=== PATIENT | male | born 1975 | race American Indian/Alaskan Native ===

== ENCOUNTER 2020-03-11 04:33 | Outpatient (CLI) | payer BC, SELFPAY ==
[2020-03-14 10:28] LABS: HIV-1/2 Ag & Ab Screen Negative (Negative)
[2020-03-14 10:51] LABS: Syphilis Serology (RPR) Negative (Negative)
== END 2020-03-11 04:53 ==
PROVIDERS: PCP Family Medicine
DX: Z11.3 Encounter for screening for infections with a predominantly sexual mode of transmission (principal); Z11.4 Encounter for screening for human immunodeficiency virus [HIV]
CPT/HCPCS: 36415; 87389; 86592

== ENCOUNTER 2021-05-15 18:59 | Emergency (ER) | payer BC, SELFPAY ==
[2021-05-15 19:43] VITALS: BP 128/74; PULSE 76; RESP 16; TEMP 36.8; O2SAT 94
[2021-05-15 19:44] LABS: Bilirubin Negative (Negative); Blood Trace-intact (Negative); Clarity Clear (Clear); Glucose Negative (Negative); Ketones Negative (Negative); Leukocyte Esterase Negative (Negative); Nitrite Negative (Negative); Urobilinogen 0.2 EU/dL (Up TO 0.2)
--- NOTE | 2021-05-15 19:45 | DI.CT_ITS ---
Exam(s) CT ABDOMEN PELVIS W EXAM: CT ABDOMEN PELVIS W CLINICAL HISTORY: mid and right lower abdominal pain TECHNIQUE: Imaging Protocol: Axial computed tomography images with coronal and sagittal reformatted images were created and reviewed CONTRAST MATERIAL: Intravenous: Omnipaque 350 Contrast volume:100 mL Oral: No COMPARISON: No exams were available for comparison FINDINGS: ABDOMEN: Lung Bases: Normal where visualized. Liver: Fatty infiltration of the liver. No measurable mass. The liver measures 22 cm in length. Portal, Superior Mesenteric, and Splenic Veins: Unremarkable. Gallbladder and Biliary Tract: No radiodense calculus or dilation. Pancreas: Normal density, no abnormal calcifications or inflammatory process. Spleen: Normal. Adrenals: No masses seen. Kidneys: Normal size, contour and axis. No radiodense stones or obstructive uropathy. No masses seen. Abdominal Aorta: Abdominal portion non-dilated. Bowel: No obstruction or bowel wall thickening. Appendix is unremarkable. Peritoneal Cavity: No ascites, collection or mesenteric inflammatory response. No free air. Lymph Nodes: Within normal limits. Bones: Within normal limits for the patient's age. Soft Tissues: There is a small fat containing umbilical hernia. PELVIS: Bladder: Symmetric distention, no gross wall thickening. Reproductive Organs: Unremarkable as visualized. Lymph Nodes: Within normal limits. Bones: Within normal limits for the patient's age. IMPRESSION: 1. No definite acute abdominal pelvic process. Please correlate clinically. 2. Hepatic steatosis and hepatomegaly. RADIATION DOSE DELIVERED: 1,534.32mGy.cm Total DLP DATA REPOSITORY: All CT scans at this facility are submitted to the National Radiology Data Registry (NRDR) Dose Index Registry (DIR) with the [employer] ([employer]). RADIATION OPTIMIZATION: All CT scans at this facility use at least one of these dose optimization te chniques: automated exposure control; mA and/or kV adjustment per patient size (includes targeted exa ms where dose is matched to clinical indication); or iterative reconstruction.
[2021-05-15 19:52] LABS: Bacteria Negative HPF (Negative); C & S Indicated? No; Casts Negative LPF (Negative); Crystals Negative HPF (Negative); Epithelial Cells Rare HPF (Negative); Mucus Negative (Negative); RBC 0-2 HPF (0-2); WBC 0-2 HPF (0-5)
--- NOTE | 2021-05-15 19:58 | ED.GENADUL_ITS ---
Discharge Plan Disposition Patient Disposition: HOME Condition: Stable Discharge Details Clinical Impression: Abdominal pain, Enteritis Primary Care Provider: Mike Marrero ED Provider: Abundio Spann Home Meds and New Rx's Prescriptions: New amoxicillin-pot clavulanate [Augmentin] 875-125 mg tablet 1 tab PO BID Qty: 14 RF: 0 Continued lisinopril 10 mg tablet 10 mg PO DAILY RF: 0 glycopyrrolate 1 mg tablet 1 mg PO BID-TID PRNRF: 0 valacyclovir [Valtrex] 1 gram tablet 1,000 mg PO BID PRNRF: 0 famotidine 20 mg tablet 20 mg PO DAILY RF: 0 Discharge Instructions Instructions: Abdominal Pain (ED) Additional Instructions: your cat scan showed a normal appendix, you do have some mild inflammation of the small bowel you can try taking prilosec daily to help your symptoms follow up with your primary care provider within 1 week if you feel more ill, have severe worsening pain or persistent vomit return to the emergency department Medical Decision Making 45 yo male with hx of htn no prior surgeries per patient comes in with chief complaint of abodminal pain. He states he has had periumbilical pain since Saturday. He went to urgent care today and refferred him here. He denies any diarhea, no fevers or vomit. He is tender in the right lower abdomin miranda daround the umiblicus, has very mild erythema around the umbilicus that is about 3cm in diameter, could be abdominal wall cellulitis but given his pain and tenderness will image to evaluate for possible abscess vs appendicitis ct shows no appendicitis, does have enteritis with reactive mesenteric inflammation, no other acute findings. He remains stable with minimal pain around umbilicus. I am going to treat the erythema as possible cellulitis with augmentin. He is stable for d/c, and will follow up with pcp and return precautions given Differential Diagnosis Differential Diagnosis: appendicitis, mesenteric adenitis, abdominal wall cellulitis Imaging Data Radiologic Study: Attestation: I personally reviewed and interpreted this imaging study as follows: Imaging: CT Scan Radiologist's impression: IMPRESSION: 1. Findings of enteritis with reactive mesenteric inflammation. 2. Hepatic steatosis. Lab Data Lab results reviewed: Yes I reviewed the patient's lab results. HPI General Mode of arrival: ambulatory . Date/Time Provider Initiated Documentation: 05/15/21 19:01 . Limitations to Documentation: no limitations . Information obtained by: patient . History of Present Illness 45 year old M presents to the emergency department with the chief complaint of abdominal pain, described as moderate, Patient started experiencing this day(s) (5) and it has been constant. No relieving factors improve symptom(s), No exacerbating factors reported . Patient notes no other symptoms.. Patient did receive the following treatments prior to arrival, none Related Data Home Medications Medication Instructions Recorded Confirmed amoxicillin-pot clavulanate 1 tab PO BID #14 tab 05/15/21 [Augmentin] famotidine 20 mg tablet 20 mg PO DAILY 05/15/21 05/15/21 glycopyrrolate 1 mg tablet 1 mg PO BID-TID PRN 05/15/21 05/15/21 lisinopril 10 mg tablet 10 mg PO DAILY 05/15/21 05/15/21 valacyclovir 1 gram tablet 1,000 mg PO BID PRN 05/15/21 05/15/21 Previous Rx's Medication Instructions Recorded amoxicillin-pot clavulanate 1 tab PO BID #14 tab 05/15/21 [Augmentin] Allergies Allergy/AdvReac Type Severity Reaction Status Date / Time sulfamethoxazole Allergy Mild Hives Verified 05/15/21 19:47 [From Bactrim] trimethoprim [From Bactrim] Allergy Mild Hives Verified 05/15/21 19:47 General Stated Complaint: Abd Prob CLYDE: 3 Review of Systems All systems reviewed & are unremarkable except as noted in HPI and below Constitutional Constitutional: Denies chills, Denies fever(s) and Denies weakness Cardiovascular Cardiovascular: Denies chest pain and Denies dyspnea Respiratory Respiratory: Denies cough and Denies dyspnea Gastrointestinal Gastrointestinal: Denies nausea and Denies vomiting Musculoskeletal Musculoskeletal: Denies joint swelling Neurologic Neurologic: Denies weakness [facility] Active Problem List (Updated 05/15/21 @ 21:01 by Abundio Spann MD) Abdominal pain (Acute) Enteritis (Acute) Medical History (Updated 05/15/21 @ 21:01 by Abundio Spann MD) Chronic GERD Hypertension Social History Smoking/Tobacco Use Status: Current-Occasional Smoking risk assessment performed?: Yes Alcohol Intake: current Alcohol Intake frequency: 0-2 drinks per day Alcohol type: beer Drug use: Never Substance use type: does not use Do you feel safe at home: Yes Do you feel safe in your relationship?: Yes Exam Const General: no acute distress Orientation: alert HENMT Head: normal to inspection Ears: external ears normal General nose exam: external nose normal Mouth: moist mucous membranes Eyes General: appearance normal, both eyes and all related structures Neck Neck: normal visual inspection Resp Effort & Inspection: normal respiratory effort and able to speak in complete sentences Cardio Rate: regular rate GI Palpation: soft and tender Skin General skin exam: no rashes or lesions noted Neuro General: patient alert and patient oriented x3 Extrem General: normal to inspection Psych Mental Status: mental status grossly normal Course Vital Signs Vital signs: Vital Signs Temperature 36.8 C 05/15/21 19:43 Pulse 76 05/15/21 19:43 Respiratory Rate 16 05/15/21 19:43 Blood Pressure 128/74 05/15/21 19:43 Pulse Oximetry 94 05/15/21 19:43 Temperature 36.8 C 05/15/21 19:43 Temperature Source Skin 05/15/21 19:43 Pulse 76 05/15/21 19:43 Respiratory Rate 16 05/15/21 19:43 Respiratory Effort Non-Labored 05/15/21 19:45 Blood Pressure 128/74 05/15/21 19:43 Pulse Oximetry 94 05/15/21 19:43 Pain Level 5 05/15/21 19:43 Lab/Test Results Lab/Test Results: Laboratory Tests Range/Units 05/15/21 19:15 Urine Color (Yellow) Yellow Urine Clarity (Clear) Clear Urine pH (5-8) 6.0 Ur Specific [place] (1.005-1.025) 1.020 Urine Protein (Negative) mg/dL Negative Urine Ketones (Negative) mg/dL Negative Urine Blood (Negative) Trace-intact H Urine Nitrite (Negative) Negative Urine Bilirubin (Negative) Negative Urine Urobilinogen (Up TO 0.2) EU/dL 0.2 Ur Leukocyte Esterase (Negative) Negative Urine RBC (0-2) HPF 0-2 Urine WBC (0-5) HPF 0-2 Ur Epithelial Cells (Negative) HPF Rare Urine Crystals (Negative) HPF Negative Urine Bacteria (Negative) HPF Negative Urine Casts (Negative) LPF Negative Urine Mucus (Negative) Negative Ur Culture Indicated? No Urine Glucose (Negative) mg/dL Negative PAWSS Have you Been Recently Intoxicated or Drunk Within the Last 30 days?: No Have you Ever Experienced Previous Episodes of Alcohol Withdrawal?: No Have you ever Experienced Withdrawal Seizures?: No Have you ever Experienced Delirium Tremens(DT)s?: No Have you ever undergone Alcohol Rehabilitation Treatment (i.e, inpt ot outpatient treatment programs)?: No Have you ever Experienced Blackouts?: No Have you ever Combined Alcohol with other Downers within the last 90 days?: No Have you ever Combined Alcohol with any other Substance of Abuse during the last 90 days?: No Positive Blood Alcohol level on Presentation? [PCS.BAL]: No Result: 0
[2021-05-15] MEDS: Normal Saline 1,000 ML 1000 ML IV (19:59)
[2021-05-15 20:00] LABS: Abs Immature Grans 0.03 10^3/uL (0.0-0.06); Absolute Basophil Count 0.05 10^3/uL (0.0-0.2); Absolute Lymphocyte Count 3.13 10^3/uL (1.2-3.4); Absolute Monocyte Count 0.88 10^3/uL (0.1-0.8); Absolute Neutrophil Count 6.68 10^3/uL (1.2-6.7); Basophils % 0.5; Eosinophils % 1.8; HCT 44.9 % (40.0-50.0); HGB 14.8 g/dL (13.5-17.5); Immature Grans % 0.3; Lymphocytes % 28.5; MCH 29.8 pg (27.0-33.0); MCV 90.5 fL (80-95); Neutrophils % 60.9; Nucleated RBC 0 %; Platelet Count 290 10^3/uL (130-400); RBC 4.96 10^6/uL (4.36-5.78); RDW-SD 42.7 fL; WBC 10.97 10^3/uL (4.4-10.8)
[2021-05-15] MEDS: Omnipaque 350 MG/ML 100 ML BTL IJ (20:14)
[2021-05-15] MEDS: Normal Saline Flush 10 ML SYR IVP (20:15)
[2021-05-15 20:33] LABS: ALT 28 U/L (16-63); AST 19 U/L (15-37); Albumin 4.1 g/dL (3.4-5.0); Alkaline Phosphatase 68 U/L (46-116); Anion Gap 9.1 mmol/L (3-11); BUN 17 mg/dL (7-18); Bilirubin, Total 0.4 mg/dL (0.2-1.0); CO2 26.9 mmol/L (21.0-32.0); CREATININE 0.9 mg/dL (0.70-1.30); Calcium 8.7 mg/dL (8.5-10.1); Chloride 103 mmol/L (98-107); Glucose 94 mg/dL (74-106); Lipase 50 U/L (73-393); Magnesium 2.1 mg/dL (1.8-2.4); Sodium 139 mmol/L (136-145); Total Protein 7.7 g/dL (6.4-8.2)
--- NOTE | 2021-05-15 20:54 | DI.VRAD_ITS ---
PROCEDURE INFORMATION: Exam: CT Abdomen And Pelvis With Contrast Exam date and time: 05/15/2021 7:58 PM Age: 45 years old Clinical indication: Localized; Patient HX: Mid and right lower abdominal pain. Pain for a few days increasing today TECHNIQUE: Imaging protocol: Computed tomography of the abdomen and pelvis with contrast. Radiation optimization: All CT scans at this facility use at least one of these dose optimization techniques: automated exposure control; mA and/or kV adjustment per patient size (includes targeted exams where dose is matched to clinical indication); or iterative reconstruction. Contrast material: OMNIPAQUE 350; Contrast volume: 100 ml; Contrast route: INTRAVENOUS (IV); COMPARISON: No relevant prior studies available. FINDINGS: Lungs: Lung bases are clear. Liver: Liver attenuation is low. Negative for mass or abscess. The liver is large, 22 cm in length. Gallbladder and bile ducts: Normal. No calcified stones. No ductal dilation. Pancreas: Normal. No ductal dilation. Spleen: Normal. No splenomegaly. Adrenal glands: Normal. No mass. Kidneys and ureters: Normal. No hydronephrosis. Stomach and bowel: Unremarkable stomach. Nondilated small bowel. Fat planes around loops of small bowel are indistinct. There are no inflammatory changes observed around the colon. Appendix: Normal appendix. Intraperitoneal space: Mild mesenteric fat stranding. No significant free fluid. Negative for free air. Negative for abscess. Vasculature: Unremarkable. No abdominal aortic aneurysm. Lymph nodes: Mesenteric lymph nodes are mildly prominent. Negative for pathologic lymphadenopathy. Urinary bladder: Unremarkable as visualized. Reproductive: Unremarkable as visualized. Bones/joints: Negative for compression fracture. Multilevel degenerative disc disease and facet arthropathy noted, greatest at the lumbosacral junction. Transitional lumbosacral anatomy noted. Soft tissues: Unremarkable. IMPRESSION: 1. Findings of enteritis with reactive mesenteric inflammation. 2. Hepatic steatosis. Dictated and Authenticated by: Abundio Odom MD. Ordering:ANIKET Del Castillo MD
[2021-05-15] MEDS: Amoxicillin 875/Clav. 125 TAB PO (21:07)
[2021-05-15 21:10] VITALS: BP 136/83; PULSE 73; TEMP 36.5; O2SAT 99
== END 2021-05-15 21:18 | disposition home or self-care (01) ==
PROVIDERS: Emergency Provider Emergency Medicine; PCP Family Medicine
DX: R10.33 Periumbilical pain (principal); K52.9 Noninfective gastroenteritis and colitis, unspecified; R10.31 Right lower quadrant pain
CPT/HCPCS: 36415; 80053; 83690; 96360; 99285; 74177; 81003; 81015; 83735; 85025; 99284; J3490

== ENCOUNTER 2021-09-08 19:27 | Outpatient (REF) | payer BC, SELFPAY ==
[2021-09-08 21:24] LABS: Bilirubin Negative (Negative); Blood Negative (Negative); Clarity Sl Cloudy (Clear); Glucose Negative (Negative); Ketones Negative (Negative); Leukocyte Esterase Negative (Negative); Nitrite Negative (Negative); Specific Gravity >= 1.030 (1.005-1.025); Urobilinogen 0.2 EU/dL (Up TO 0.2)
== END 2021-09-08 19:28 | disposition home or self-care (01) ==
LOC: LBN 19:27
PROVIDERS: PCP Family Medicine; Visit Provider Nurse Practitioner Family
DX: R39.9 Unspecified symptoms and signs involving the genitourinary system (principal); N39.0 Urinary tract infection, site not specified
CPT/HCPCS: 81003

== ENCOUNTER 2022-01-22 20:01 | Emergency (ER) | payer BC, SELFPAY ==
[2022-01-22] VITALS (69 sets, daily range): BP systolic 108–146; BP diastolic 61–94; PULSE 68–126; RESP 13–36; TEMP 37; O2SAT 94–99
--- NOTE | 2022-01-22 20:00 | RT.EKG_ITS ---
APPROVED REPORT Exam: Resting ECG Reason for Exam: chest pain Patient Location: E HR:123 bpm ECG Measurements Heart Rate 123 AXIS NM [id number] P [id number] QRSd 91 QRS 11 QT 336 T 94 QTc 481 Conclusion Atrial fibrillation...V-rate 102-138, irreg A-activity
[2022-01-22] MEDS: Normal Saline 1,000 ML 1000 ML IV (20:44)
[2022-01-22 20:45] LABS: Abs Immature Grans 0.03 10^3/uL (0.0-0.06); Absolute Basophil Count 0.05 10^3/uL (0.0-0.2); Absolute Eosinophil Count 0.41 10^3/uL (0.0-0.7); Absolute Lymphocyte Count 3.42 10^3/uL (1.2-3.4); Absolute Monocyte Count 0.88 10^3/uL (0.1-0.8); Basophils % 0.5; Eosinophils % 3.8; HCT 47.9 % (40.0-50.0); HGB 15.8 g/dL (13.5-17.5); Immature Grans % 0.3; Lymphocytes % 31.5; MCH 26.6 pg (27.0-33.0); MCV 81 fL (80-95); MPV 9.5 fL (8.0-11.0); Monocytes % 8.1; Neutrophils % 55.8; Platelet Count 341 10^3/uL (130-400); RBC 5.94 10^6/uL (4.36-5.78); RDW 15.7 % (11.8-14.1); RDW-SD 45.3 fL; WBC 10.85 10^3/uL (4.4-10.8)
[2022-01-22] MEDS: Aspirin 325 MG TAB PO (20:45)
[2022-01-22 20:46] LABS: Absolute Neutrophil Count 6.05 10^3/uL (1.2-6.7)
[2022-01-22 21:10] LABS: ALT 42 U/L (16-63); AST 44 U/L (15-37); Alkaline Phosphatase 72 U/L (46-116); Anion Gap 9.1 mmol/L (3-11); BUN 18 mg/dL (7-18); Bilirubin, Total 0.4 mg/dL (0.2-1.0); CO2 28.9 mmol/L (21.0-32.0); CREATININE 1.1 mg/dL (0.70-1.30); Calcium 8.8 mg/dL (8.5-10.1); Chloride 101 mmol/L (98-107); Glucose 120 mg/dL (74-106); Magnesium 1.8 mg/dL (1.8-2.4); Potassium 3.7 mmol/L (3.5-5.1); Sodium 139 mmol/L (136-145); Total Protein 7.8 g/dL (6.4-8.2)
[2022-01-22 21:17] LABS: D-Dimer 237 ng/mlFEU (<500); NT-proBNP 37 pg/mL (<300); TSH (W/Ref FT4) 7.47 uIU/mL (0.36-3.74); Troponin I 906 ng/L (<or=60)
[2022-01-22 21:35] LABS: FREE T4 0.76 ng/dL (0.76-1.46)
[2022-01-22] MEDS: dilTIAZem 25 MG/5 ML VIAL 20 MG IVP (21:43)
--- NOTE | 2022-01-22 22:10 | ED.GENADUL_ITS ---
Discharge Plan Disposition Patient Disposition: HOME Condition: Improving Discharge Details Clinical Impression: Atrial fibrillation Primary Care Provider: Mike Marrero ED Provider: Prince Godinez Home Meds and New Rx's Prescriptions: New metoprolol tartrate 25 mg tablet 25 mg PO DAILY PRNQty: 30 0RF Rx Instructions: once daily prn palpitations/fast heart rate aspirin [Adult Aspirin Regimen] 81 mg tablet,delayed release (DR/EC) 81 mg PO DAILY Qty: 30 0RF No Action omeprazole 40 mg capsule,delayed release(DR/EC) 40 mg PO 2XD lisinopril 10 mg tablet 20 mg PO DAILY glycopyrrolate 1 mg tablet 1 mg PO BID-TID PRN valacyclovir [Valtrex] 1 gram tablet 1,000 mg PO PRN PRN testosterone cypionate 200 mg/mL Kit 100 mg IM Q2W L-Arginine(alpha-ketoglutarat) 350 mg Tablet Extended Release PO 2XD Discharge Instructions Instructions: A-fib (Atrial Fibrillation) (ED) Additional Instructions: Please follow-up with electrophysiology clinic at [facility] next week as scheduled. Please be seen by your primary care physician within the next 1 to 2 weeks. Continue with your CPAP machine at home. Please return to the emergency department for any worsening symptoms such as chest pain shortness of breath dizziness nausea or any other abnormal symptoms. Discharge Data Discharge Date/Time-TO BE ENTERED AT DEPARTURE: 01/23/22 00:02 Medical Decision Making <Prince Godinez NP - Last Filed: 01/25/22 09:33> Patient presenting to the emergency department for chief complaint of palpitations. He states that he started this afternoon while sitting at around 3:00. Patient did state initially he felt slightly lightheaded and short of breath but the symptoms have mostly resolved with continued palpitations. Patient states he has had brief episodes of this in the past that seem to only last about 10 or 15 minutes but this has been persistent. Patient has significant past medical history of hypertension and mother and grandmother have cardiac history with mother having A. fib diagnosed in her 50s. Patient denies any excessive alcohol use and states he only drinks socially and occasionally but did not have much alcohol at all this weekend. Patient denies any tobacco use. Patient is obese and exam shows tachycardia with an irregular rhythm otherwise exam is unremarkable. We will plan on checking labs and EKG for con cern of new onset A. fib. Patient is hemodynamically stable with a rate in the 120s EKG reviewed with Dr. Larkin please see physician note for full interpretation. Patient has rate of 123 and atrial fibrillation no obvious acute ischemic changes. Will give patient diltiazem for rate control pending remaining labs. Reviewed patient's labs and CBC shows slight elevation of WBCs and RBCs along w ith high levels of lymphocytes and monocytes. Negative D-dimer, CMP nondiagnostic, normal magnesium, BNP of 37, initial troponin of 906, TSH is 7.47 but free T4 is 0.76 Patient reassessed and is now rate controlled with average heart rate in the 80s. Patient does state improvement of symptoms and only feels slight palpitation but denies any pain. Will repeat EKG and troponin to attempt to differentiate between A. fib due to ischemia or demand ischemia from new onset of A fib. Repeat EKG did show A. fib with rate of 89 and subtle T wave inversions in V5 and V6 otherwise no obvious ischemic changes. Second troponin is decreasing at 807 which I feel means more towards demand ischemia given that the diltiazem to slow the heart rate. We will plan on consulting with cardiology at [facility] for recommendations of rate control versus cardioversion given that patient is otherwise stable. Pending cardiology consultation patient signed out to Dr. Carbajal <Kit Carbajal MD - Last Filed: 01/22/22 23:57> Patient presenting to the emergency department for chief complaint of palpitations. He states that he started this afternoon while sitting at around 3:00. Patient did state initially he felt slightly lightheaded and short of breath but the symptoms have mostly resolved with continued palpitations. Patient states he has had brief episodes of this in the past that seem to only last about 10 or 15 minutes but this has been persistent. Patient has significant past medical history of hypertension and mother and grandmother have cardiac history with mother having A. fib diagnosed in her 50s. Patient denies any excessive alcohol use and states he only drinks socially and occasionally but did not have much alcohol at all this weekend. Patient denies any tobacco use. Patient is obese and exam shows tachycardia with an irregular rhythm otherwise exam is unremarkable. We will plan on checking labs and EKG for concern of new onset A. fib. Patient is hemodynamically stable with a rate in the 120s EKG reviewed with Dr. Larkin please see physician note for full interpretation. Patient has rate of 123 and atrial fibrillation no obvious acute ischemic changes. Will give patient diltiazem for rate control pending remaining labs. Reviewed patient's labs and CBC shows slight elevation of WBCs and RBCs along with high levels of lymphocytes and monocytes. Negative D-dimer, CMP nondiagnostic, normal magnesium, BNP of 37, initial troponin of 906, TSH is 7.47 but free T4 is 0.76 Patient reassessed and is now rate controlled with average heart rate in the 80s. Patient does state improvement of symptoms and only feels slight palpitation but denies any pain. Will repeat EKG and troponin to attempt to differentiate between A. fib due to ischemia or demand ischemia from new onset of A fib. Repeat EKG did show A. fib with rate of 89 and subtle T wave inversions in V5 and V6 otherwise no obvious ischemic changes. Second troponin is decreasing at 807 which I feel means more towards demand ischemia given that the diltiazem to slow the heart rate. We will plan on consulting with cardiology at [facility] for recommendations of rate control versus cardioversion given that patient is otherwise stable. Pending cardiology consultation patient signed out to Dr. Carbajal [id number] patient resting comfortably no acute distress. Chest pain-free normoxic hemodynamically stable. Discussed case with [facility] otolaryngology rep Dr. Fu who would like patient to follow-up in electrophysiology clinic next week. Given patient's low [id number] score we will hold anticoagulation, will start patient on metoprolol tartrate as well as daily aspirin 81 mg. Given strict return precautions for any worsening symptoms. Counseled to continue with his CPAP machine. Patient feels comfortable with plan will follow-up as scheduled. HPI <Prince Godinez NP - Last Filed: 01/25/22 09:33> General Mode of arrival: ambulatory . Date/Time Provider Initiated Documentation: 01/22/22 20:11 . Limitations to Documentation: no limitations . Information obtained by: patient and RN notes reviewed . History of Present Illness 46 year old M presents to the emergency department with the chief complaint of Palpitations, Quality is described as other (denies pain ), Patient reports no radiation. Patient started experiencing this hour(s) (5) and it has been constant. No relieving factors improve symptom(s), No exacerbating factors reported . Patient notes shortness of breath. Patient did receive the following treatments prior to arrival, none Related Data Home Medications Medication Instructions Recorded Confirmed glycopyrrolate 1 mg tablet 1 mg PO BID-TID PRN 05/15/21 05/17/21 lisinopril 10 mg tablet 20 mg PO DAILY 05/15/21 01/22/22 valacyclovir 1 gram tablet 1,000 mg PO PRN PRN 05/15/21 01/22/22 (Valtrex) omeprazole 40 mg capsule,delayed 40 mg PO 2XD 09/08/21 01/22/22 release arginine oxoglurate 350 mg mg PO 2XD 01/22/22 tablet,extended release (L-Arginine (alpha-ketoglutarate)) aspirin 81 mg tablet,delayed 81 mg PO DAILY #30 tabs 01/22/22 release (Adult Aspirin Regimen) metoprolol tartrate 25 mg tablet 25 mg PO DAILY PRN #30 tabs 01/22/22 testosterone cypionate 200 mg/mL 100 mg IM Q2W 01/22/22 01/22/22 intramuscular kit Previous Rx's Medication Instructions Recorded aspirin 81 mg tablet,delayed 81 mg PO DAILY #30 tabs 01/22/22 release (Adult Aspirin Regimen) metoprolol tartrate 25 mg tablet 25 mg PO DAILY PRN #30 tabs 01/22/22 Allergies Allergy/AdvReac Type Severity Reaction Status Date / Time sulfamethoxazole Allergy Mild Hives Verified 09/08/21 18:59 [From Bactrim] trimethoprim [From Bactrim] Allergy Mild Hives Verified 09/08/21 18:59 General Stated Complaint: Palpitatns CLYDE: 2 Review of Systems <Prince Godinez NP - Last Filed: 01/25/22 09:33> Constitutional Constitutional: Denies chills, Denies fever(s) and Denies malaise ENT Ears, Nose, Mouth, and Throat: Denies dizziness Cardiovascular Cardiovascular: Reports as per HPI, Denies chest pain, Denies chest pain with activity, Denies syncope, Reports rapid heart rate, Denies pedal edema, Denies irregular heart rhythm, Reports lightheadedness, Denies palpitations and Reports dyspnea Respiratory Respiratory: Denies cough, Denies hemoptysis and Reports dyspnea Gastrointestinal Gastrointestinal: Denies abdominal pain, Denies nausea and Denies vomiting Genitourinary Genitourinary: Reports system reviewed and no additional complaints, except as documented Integumentary/Breasts Skin/Breast: Denies rash Neurologic Neurologic: Denies dizziness and Denies syncope Psychiatric Psychiatric: Denies anxiety Endocrine Endocrine: Denies cold intolerance, Denies heat intolerance and Denies palpitations PFSH <Prince Godinez NP - Last Filed: 01/25/22 09:33> All Active Problems (Updated 01/22/22 @ 23:53 by Kit Carbajal MD) Atrial fibrillation (Chronic) Abdominal pain (Acute) Enteritis (Acute) Medical History Chronic GERD Hypertension Social History Smoking/Tobacco Use Status: Former Tobacco Use Smoking risk assessment performed?: Yes Alcohol Intake: current Alcohol Intake frequency: 0-2 drinks per day Alcohol type: beer Drug use: Never Substance use type: does not use Do you feel safe at home: Yes Do you feel safe in your relationship?: Yes Exam <Prince Godinez NP - Last Filed: 01/25/22 09:33> Const General: cooperative, comfortable, no acute distress, not diaphoretic and not ill appearing Orientation: alert, awake and oriented x3 Limitations: mental status not altered Neck Neck: normal visual inspection, full ROM, trachea midline, supple and no anterior neck swelling Carotids: normal carotid upstroke and no bruits Chest Chest: normal inspection of the chest Resp Effort & Inspection: normal respiratory effort and able to speak in complete sentences Auscultation: clear to auscultation bilaterally Cardio Jugular venous pressure: no JVD Palpation: normal PMI Rate: tachycardic Rhythm: abnormal rhythm irregularly irregular Heart Sounds: S1 normal and S2 normal Bruits: no abdominal aortic bruits and no carotid bruits Pulses: radial pulses present bilaterally 2+ GI Inspection: normal to inspection Palpation: soft, no aortic enlargement, no pulsatile masses and nontender Auscultation: normal bowel sounds Skin General skin exam: no rashes or lesions noted Neuro General: patient alert, patient awake, patient oriented x3, tone normal and moves all extremities Course <Prince Godinez NP - Last Filed: 01/25/22 09:33> Vital Signs Vital signs: Vital Signs Temperature 37.0 C 01/22/22 20:11 Pulse 121 H 01/22/22 20:11 Respiratory Rate 18 01/22/22 20:11 Blood Pressure 134/85 01/22/22 20:11 Pulse Oximetry 96 01/22/22 20:11 Temperature 37.0 C 01/22/22 20:11 Temperature Source Tympanic 01/22/22 20:11 Pulse 118 H 01/22/22 21:43 Respiratory Rate 20 01/22/22 20:46 Respiratory Effort 01/22/22 20:15 Blood Pressure 118/84 01/22/22 21:43 Blood Pressure Position Supine 01/22/22 20:11 Pulse Oximetry 96 01/22/22 20:46 Oxygen Delivery Method Room Air 01/22/22 20:11 Oxygen Flow Rate 0 01/22/22 20:11 Lab/Test Results Lab/Test Results: Laboratory Tests Range/Units 01/22/22 01/22/22 01/22/22 20:10 20:10 20:10 WBC (4.4-10.8) 10^3/uL 10.85 H RBC (4.36-5.78) 10^6/uL 5.94 H Hgb (13.5-17.5) g/dL 15.8 Hct (40.0-50.0) % 47.9 MCV (80-95) fL 81 MCH (27.0-33.0) pg 26.6 L MCHC (32.0-36.0) % 33.0 RDW (11.8-14.1) % 15.7 H Plt Count (130-400) 10^3/uL 341 MPV (8.0-11.0) fL 9.5 Immature Gran % 0.3 Neutrophils % 55.8 Lymphocytes % 31.5 Monocytes % 8.1 Eosinophils % 3.8 Basophils % 0.5 Nucleated RBC % (0.0-0.3) % 0.0 Absolute Neutrophils (1.2-6.7) 10^3/uL 6.05 Absolute Lymphocytes (1.2-3.4) 10^3/uL 3.42 H Absolute Monocytes (0.1-0.8) 10^3/uL 0.88 H Absolute Eosinophils (0.0-0.7) 10^3/uL 0.41 Absolute Basophils (0.0-0.2) 10^3/uL 0.05 D-Dimer (<500) ng/mlFEU Sodium (136-145) mmol/L 139 Potassium (3.5-5.1) mmol/L 3.7 Chloride (98-107) mmol/L 101 Carbon Dioxide (21.0-32.0) mmol/L 28.9 Anion Gap (3-11) mmol/L 9.1 BUN (7-18) mg/dL 18 Creatinine (0.70-1.30) mg/dL 1.1 Estimated GFR/1.73 m2 (mL/min/1.73m2) >= 60.00 Glucose (74-106) mg/dL 120 H Calcium (8.5-10.1) mg/dL 8.8 Magnesium (1.8-2.4) mg/dL 1.8 Total Bilirubin (0.2-1.0) mg/dL 0.4 AST (15-37) U/L 44 H ALT (16-63) U/L 42 Alkaline Phosphatase (46-116) U/L 72 Troponin I (<or=60) ng/L 906 H* NT-Pro-B Natriuret Pep (<300) pg/mL 37 Total Protein (6.4-8.2) g/dL 7.8 Albumin (3.4-5.0) g/dL 4.0 TSH (0.36-3.74) uIU/mL 7.47 H Free T4 (0.76-1.46) ng/dL 0.76 Range/Units 01/22/22 20:10 WBC (4.4-10.8) 10^3/uL RBC (4.36-5.78) 10^6/uL Hgb (13.5-17.5) g/dL Hct (40.0-50.0) % MCV (80-95) fL MCH (27.0-33.0) pg MCHC (32.0-36.0) % RDW (11.8-14.1) % Plt Count (130-400) 10^3/uL MPV (8.0-11.0) fL Immature Gran % Neutrophils % Lymphocytes % Monocytes % Eosinophils % Basophils % Nucleated RBC % (0.0-0.3) % Absolute Neutrophils (1.2-6.7) 10^3/uL Absolute Lymphocytes (1.2-3.4) 10^3/uL Absolute Monocytes (0.1-0.8) 10^3/uL Absolute Eosinophils (0.0-0.7) 10^3/uL Absolute Basophils (0.0-0.2) 10^3/uL D-Dimer (<500) ng/mlFEU 237 Sodium (136-145) mmol/L Potassium (3.5-5.1) mmol/L Chloride (98-107) mmol/L Carbon Dioxide (21.0-32.0) mmol/L Anion Gap (3-11) mmol/L BUN (7-18) mg/dL Creatinine (0.70-1.30) mg/dL Estimated GFR/1.73 m2 (mL/min/1.73m2) Glucose (74-106) mg/dL Calcium (8.5-10.1) mg/dL Magnesium (1.8-2.4) mg/dL Total Bilirubin (0.2-1.0) mg/dL AST (15-37) U/L ALT (16-63) U/L Alkaline Phosphatase (46-116) U/L Troponin I (<or=60) ng/L NT-Pro-B Natriuret Pep (<300) pg/mL Total Protein (6.4-8.2) g/dL Albumin (3.4-5.0) g/dL TSH (0.36-3.74) uIU/mL Free T4 (0.76-1.46) ng/dL PAWSS <Prince Godinez NP - Last Filed: 01/25/22 09:33> Have you Been Recently Intoxicated or Drunk Within the Last 30 days?: Yes Have you Ever Experienced Previous Episodes of Alcohol Withdrawal?: No Have you ever Experienced Withdrawal Seizures?: No Have you ever Experienced Delirium Tremens(DT)s?: No Have you ever undergone Alcohol Rehabilitation Treatment (i.e, inpt ot outpatient treatment programs)?: No Have you ever Experienced Blackouts?: No Have you ever Combined Alcohol with other Downers within the last 90 days?: No Have you ever Combined Alcohol with any other Substance of Abuse during the last 90 days?: No Positive Blood Alcohol level on Presentation? [PCS.BAL]: No Evidence of Increased Autonomic Activity (i.e. HR>120, tremor, sweating, agitation, nausea)?: No Result: 1 <Kit Carbajal MD - Last Filed: 01/22/22 23:57> Result: 1
--- NOTE | 2022-01-22 22:30 | RT.EKG_ITS ---
APPROVED REPORT Exam: Resting ECG Reason for Exam: Palpations Patient Location: E HR:89 bpm ECG Measurements Heart Rate 89 AXIS DC [id number] P [id number] QRSd 93 QRS 18 QT 403 T 57 QTc 491 Conclusion Atrial fibrillation...V-rate 64-112, irreg A-activity
[2022-01-22 23:13] LABS: Troponin I 807 ng/L (<or=60)
--- NOTE | 2022-01-23 12:31 | PDOC.ERCMACT ---
- If Service Date Differs Date of service: 01/23/22 Time of Service: 12:31 Care Management Activity Note Joel presents in the ED for new onset of A. Fib. At the request of ED provider, CM coordinates a referral to [facility] to assist Joel in obtaining an appointment for further evaluation and treatment.
== END 2022-01-23 00:02 | disposition home or self-care (01) ==
PROVIDERS: Emergency Provider Nurse Practitioner Family; PCP Family Medicine
DX: I48.91 Unspecified atrial fibrillation (principal); I10 Essential (primary) hypertension; Z87.891 Personal history of nicotine dependence; D72.820 Lymphocytosis (symptomatic); R71.8 Other abnormality of red blood cells; D72.821 Monocytosis (symptomatic)
CPT/HCPCS: 80053; 93005; 96361; 96374; 99284; 83735; 83880; 84439; 84443; 84484; 85025; 85379; 93010

== ENCOUNTER 2023-05-07 10:08 | Emergency (ER) | payer BC, SELFPAY ==
[2023-05-07] VITALS (42 sets, daily range): BP systolic 105–135; BP diastolic 56–90; PULSE 60–115; RESP 9–26; O2SAT 92–98
--- NOTE | 2023-05-07 10:15 | RT.EKG_ITS ---
APPROVED REPORT Exam: Resting ECG Reason for Exam: AFIB Patient Location: E HR:100 bpm ECG Measurements Heart Rate 100 AXIS KS [id number] P [id number] QRSd 95 QRS 3 QT 332 T 17 QTc 429 Conclusion Atrial fibrillation...V-rate 70-119, irreg A-activity
--- NOTE | 2023-05-07 10:30 | DI.RAD_ITS ---
Exam(s) XR CHEST 2V PA LATERAL EXAM: XR CHEST 2V PA LATERAL CLINICAL HISTORY: arrhythmia. TECHNIQUE: 2D digital imaging was performed. COMPARISON: No exams were available for comparison FINDINGS: 2 views: Heart size is normal. The mediastinum is not widened. Lungs are clear. No infiltrates nor pleural effusions. IMPRESSION: No acute pulmonary findings. DATA REPOSITORY: RADIATION DOSE DELIVERED:
--- NOTE | 2023-05-07 10:30 | ED.GENADUL_ITS ---
Discharge Plan Disposition Patient Disposition: Home Discharge Details Clinical Impression: Atrial fibrillation Primary Care Provider: Mike Marrero ED Provider: Dustin Tipton Home Meds and New Rx's Prescriptions: Continued omeprazole 40 mg capsule,delayed release(DR/EC) 40 mg PO 2XD lisinopril 10 mg tablet 20 mg PO DAILY glycopyrrolate 1 mg tablet 1 mg PO BID-TID PRN valacyclovir [Valtrex] 1 gram tablet 1,000 mg PO PRN PRN testosterone cypionate 200 mg/mL Kit 100 mg IM Q2W aspirin [Adult Aspirin Regimen] 81 mg tablet,delayed release (DR/EC) 81 mg PO DAILY Qty: 30 0RF alfuzosin 10 mg tablet extended release 24 hr 10 mg PO DAILY Patient Comments: TAKE ONE TABLET BY MOUTH EVERY DAY ADMINISTER AFTER THE SAME MEAL EACH DAY Ozempic 1 mg/dose (4 mg/3 mL) pen injector 2 mg SUBCUT .qwk Held metoprolol tartrate 25 mg tablet 25 mg PO DAILY PRNQty: 30 0RF Hold Instructions: Resume on 05/08/23. YOU ARE ON 50MG METOPROLOL, PER [facility] PLEASE START TAKING 75MG ONCE PER DAY, or 1.5 TAB Rx Instructions: once daily prn palpitations/fast heart rate Discharge Instructions Instructions: A-fib (Atrial Fibrillation) (ED) Additional Instructions: You were seen in the emergency department for your likely persistent A-fib since Saturday with some mild dizziness on standing. You had a mildly elevated troponin that is trending downward or stable. This is unlikely to be an acute coronary event and more strain from your persistent A-fib. I spoke with [facility] cardiology group and they recommended against starting anticoagulation, they think it is reasonable for discharge home as long as you can obtain some sort of heart monitor, which was placed today. You also need to call your primary care provider and arrange an echocardiogram, its possible that [facility] cardiology can maybe squeeze you in next week for an echocardiogram. Please make sure to contact both PCP and [facility] to make them aware of your monitor, call [facility] / PCP for refill of your metoprolol as we have increased your dose to 75mg per day. Please monitor your heart rate for regularity closely in the coming days, if you become hypotensive or severely dizzy and near syncopal please call primary care and cardiology for recommendations on metoprolol before taking further dosing. Please return to the emergency department if you experience any chest pain, any shortness of breath, any near fainting or any episodes of tachycardia greater than 120 lasting for longer than 30 minutes. Referrals: [facility] [Outside] ([facility] Cardiology Service) BRINDA ROACH NP [ NON-[facility] STAFF PHYSICIAN] - Pancho Harris [ NON-[facility] STAFF PHYSICIAN] - Medical Decision Making This dictation utilizes [id number] dictation software and may contain unedited grammatical errors. 47 y/o M presents to ED today with a chief complaint of palpitations, known paroxysmal atrial fibrillation, denies chest pain. Onset and characteristics include had an extra 10% calderón beer on Saturday which he thinks sent him into atrial fibrillation, had some periods of pulse >120 for more than 30 minutes. Followed by [facility], not anticoagulated, on a trial of control by medication prior to any ablation, no recent illnesses. Patients' medical history: Hypertension, atrial fibrillation, GERD. Family and social history: noncontributory. Pertinent exam findings / vital signs include irregular rate, pulse ~105 (rate controlled), no rales in lungs, mentating normally. Differential / pathologies of concern include atrial fibrillation, CHF, ACS. Diagnostic studies of: -EKG, CXR, CBC, CMP, Trop I, TSH, Mg++, BNP. -EKG shows rate-controlled a. fib without ST changes, no heart block -initial trop 297, repeating q3hr - stable 284 -mild elev of BNP to 323 -CBC/CMP benign Interventions of: -IVF, 243mg ASA CH with initial trop I, 1gm Mg++ as this has helped patients atrial fibrillation in the past. -Consult Cardiology ED Course: Patient presents with chronic paroxysmal A-fib only on aspirin and 50 mg metoprolol daily, states he is likely been in A-fib since Saturday, greater than 48 hours. He states that he had a couple stronger beers like a 10% Calderón this weekend that likely put him into A-fib, he gets a little lightheaded when he stands up but complains of no chest pain or shortness of breath nor near syncope. Patient is not a great candidate for electrical cardioversion at this time- he has had atrial fibrillation for >48hrs and is not anticoagulated, and his CHADSVASc2 is > 0. CHADSVASc2: 1 Patient is found to be in persistent A-fib rate controlled while here in the department in the 70s and 80s and 90s throughout the visit. Consulted with [facility] cardiology for recommendations on whether they would like the patient cardioverted versus started on DAPT or Eliquis with closer follow-up. Findings not consistent with CHF/pulmonary edema, patients' troponin is stable at 297>284 likely trop leak from atrial fibrillation not NSTEMI, concern for discharge without anticoagulation with clot risk vs not ideal candidate for cardioversion. Spoke with Rashel, [facility] PA-C, recommends against anticoagulation at this time. Recommends he start taking 1.5 tab of his 50mg metoprolol, 75 total QD. They will try to expedite his follow-up in office that was originally scheduled for early June. Recommend Rizwana patch for rhythm monitoring. Will consult with our Cardiology/outpt office for systems processes. Recommend outpatient ECHO as well. RT here at [facility] was able to place the monitor and they will forward any notifications to Brinda Roach NP at [facility], and Dr. Pancho Harris at [facility]. Dr. Singh states that it can be done in the facility, may need his PCP to order vs ED provider. Spoke again to [facility] and Abundio Curiel from our Cardiology group- he can forward any notifications from the event monitor the Dr. Harris and [facility] Cardiology group. Patient will call his PCP for EHCO as outpatient or [facility] can possibly get one arranged next week. Disposition of Atrial Fibrillation. Patient verbalized understanding of the plan and return to ED criteria and engaged in shared decision making. Medical Records Medical records reviewed: Yes I reviewed the patient's medical records. Imaging Data Radiologic Study: Imaging: X-Ray Radiologist's impression: EXAM: XR CHEST 2V PA LATERAL CLINICAL HISTORY: arrhythmia. TECHNIQUE: 2D digital imaging was performed. COMPARISON: No exams were available for comparison FINDINGS: 2 views: Heart size is normal. The mediastinum is not widened. Lungs are clear. No infiltrates nor pleural effusions. IMPRESSION: No acute pulmonary findings. Lab Data Labs: Laboratory Tests Range/Units 05/07/23 05/07/23 10:28 13:28 WBC (4.4-10.8) 10^3/uL 7.61 RBC (4.36-5.78) 10^6/uL 5.96 H Hgb (13.5-17.5) g/dL 15.2 Hct (40.0-50.0) % 47.4 MCV (80-95) fL 80 MCH (27.0-33.0) pg 25.5 L MCHC (32.0-36.0) % 32.1 RDW (11.8-14.1) % 19.4 H Plt Count (130-400) 10^3/uL 335 MPV (8.0-11.0) fL 9.1 Immature Gran % 0.3 Neutrophils % 51.3 Lymphocytes % 36.0 Monocytes % 10.1 Eosinophils % 1.8 Basophils % 0.5 Nucleated RBC % (0.0-0.3) % 0.0 Absolute Neutrophils (1.2-6.7) 10^3/uL 3.90 Absolute Lymphocytes (1.2-3.4) 10^3/uL 2.74 Absolute Monocytes (0.1-0.8) 10^3/uL 0.77 Absolute Eosinophils (0.0-0.7) 10^3/uL 0.14 Absolute Basophils (0.0-0.2) 10^3/uL 0.04 PT (9.1-11.1) sec 10.4 INR (0.9-1.1) 1.0 APTT (23.6-32.8) sec 26.8 Sodium (136-145) mmol/L 138 Potassium (3.5-5.1) mmol/L 4.3 Chloride (98-107) mmol/L 101 Carbon Dioxide (21.0-32.0) mmol/L 29.1 Anion Gap (3-11) mmol/L 7.9 BUN (7-18) mg/dL 14 Creatinine (0.70-1.30) mg/dL 1.2 Est GFR (CKD-EPI 2020) (mL/min/1.73m2) 75.53 Glucose (74-106) mg/dL 102 Calcium (8.5-10.1) mg/dL 9.2 Magnesium (1.8-2.4) mg/dL 2.1 Total Bilirubin (0.2-1.0) mg/dL 0.5 AST (15-37) U/L 19 ALT (16-63) U/L 31 Alkaline Phosphatase (46-116) U/L 51 Troponin I (<or=60) ng/L 297 H* 284 H* NT-Pro-B Natriuret Pep (<300) pg/mL 323 H Total Protein (6.4-8.2) g/dL 7.8 Albumin (3.4-5.0) g/dL 3.9 TSH (0.36-3.74) uIU/mL 4.13 H Free T4 (0.76-1.46) ng/dL 0.77 HPI General Date/Time Provider Initiated Documentation: 05/07/23 10:12 . HPI Narrative: 47 year-old male presents to ED today by POV/ambulating with a chief complaint of atrial fibrillation with onset Saturday- patient has been diagnosed with atrial fibrillation paroxysmal and has only needed metoprolol to this point. Sees [facility]. Quality described as dizziness when he stands up, feels cruddy, no radiation to shortness of breath, chest pain, diaphoresis, endorses palpitations, denies recent illness. Severity is described as mild. Palliating factors include took an extra metoprolol yesterday. Provoking factors include equates with possible large meals over the holiday and having an extra 10% calderón on Saturday. Events leading up to the incident/Associated Symptoms: Patient was told to present to ED if he had pulse > 120 for more than 30 mins, not currently in RVR on arrival. Patient not anticoagulated- only takes baby aspirin. Related Data Home Medications Medication Instructions Recorded Confirmed glycopyrrolate 1 mg tablet 1 mg PO BID-TID PRN 05/15/21 05/07/23 lisinopril 10 mg tablet 20 mg PO DAILY 05/15/21 05/07/23 valacyclovir 1 gram tablet 1,000 mg PO PRN PRN 05/15/21 05/07/23 (Valtrex) omeprazole 40 mg capsule,delayed 40 mg PO 2XD 09/08/21 05/07/23 release aspirin 81 mg tablet,delayed 81 mg PO DAILY #30 tabs 01/22/22 05/07/23 release (Adult Aspirin Regimen) metoprolol tartrate 25 mg tablet 25 mg PO DAILY PRN #30 tabs 01/22/22 05/07/23 testosterone cypionate 200 mg/mL 100 mg IM Q2W 01/22/22 05/07/23 intramuscular kit alfuzosin 10 mg tablet,extended 10 mg PO DAILY 05/07/23 05/07/23 release 24 hr semaglutide 1 mg/dose (4 mg/3 mL) 2 mg subcut .qwk 05/07/23 05/07/23 subcutaneous pen injector (Ozempic) Previous Rx's Medication Instructions Recorded aspirin 81 mg tablet,delayed 81 mg PO DAILY #30 tabs 01/22/22 release (Adult Aspirin Regimen) metoprolol tartrate 25 mg tablet 25 mg PO DAILY PRN #30 tabs 01/22/22 Allergies Allergy/AdvReac Type Severity Reaction Status Date / Time sulfamethoxazole Allergy Mild Hives Verified 09/08/21 18:59 [From Bactrim] trimethoprim [From Bactrim] Allergy Mild Hives Verified 09/08/21 18:59 General Stated Complaint: GenMedical CLYDE: 3 Review of Systems All systems reviewed & are unremarkable except as noted in HPI and below PFSH All Active Problems (Updated 05/07/23 @ 14:51 by RASHEED Bowles) Atrial fibrillation (Chronic) Abdominal pain (Acute) Enteritis (Acute) Medical History Chronic GERD Hypertension Social History Smoking/Tobacco Use Status: Former Tobacco Use Smoking risk assessment performed?: Yes Alcohol Intake: current Alcohol Intake frequency: 0-2 drinks per day Alcohol type: beer Drug use: Never Substance use type: does not use Do you feel safe at home: Yes Do you feel safe in your relationship?: Yes Exam Narrative Exam Narrative: GENERAL APPEARANCE: Well-nourished, non-toxic, awake and alert, atraumatic, no acute distress. SKIN: Warm, pink, dry, intact, without rashes/lesions/ulcerations. HEAD: Normocephalic, atraumatic, normal hair distribution for gender/age. EYES: Pupils PERRLA, EOMs intact without nystagmus, normal conjunctiva, no exudates on lids/lashes. ENT: Nares patent, no circumoral cyanosis, no facial swelling NECK: Supple, trachea midline, painless cervical ROM. LUNGS/CHEST: Lungs CTA bilaterally- no rhonchi/wheezes, no rales at bases, non- labored respirations, normal A/P diameter, symmetrical expansion, no chest wall deformity HEART (CV/PV): Irregular rate and rhythm without murmur, no peripheral edema, no JVD. ABDOMEN: Soft, non-distended, no guarding. MSK: Normal ROM, no swelling/deformity to bilateral UEs or LEs, moving all extremities without weakness, no cyanosis, spine midline without tenderness, normal curvature. NEURO: Mental Status AAOx4 - alert to person, place, time, events No facial droop, no forehead involvement. Motor: No focal weakness - strength 5/5 in bilateral UEs and LEs, proximal and distal, symmetric. Sensory: sensation intact to light touch globally. Gait normal: patient ambulated without ataxia into ED room. PSYCH: euthymic, cooperative, pleasant, appropriate speech Course Vital Signs Vital signs: Vital Signs Pulse 105 H 05/07/23 10:21 Respiratory Rate 16 05/07/23 10:21 Blood Pressure 129/90 05/07/23 10:21 Pulse Oximetry 96 05/07/23 10:21 Pulse 105 H 05/07/23 10:21 Respiratory Rate 16 05/07/23 10:21 Blood Pressure 129/90 05/07/23 10:21 Blood Pressure Position Sitting 05/07/23 10:21 Pulse Oximetry 96 05/07/23 10:21 Oxygen Delivery Method Room Air 05/07/23 10:21 Oxygen Flow Rate 0 05/07/23 10:21 Pain Level 0 05/07/23 10:21
[2023-05-07 10:40] LABS: Abs Immature Grans 0.02 10^3/uL (0.0-0.06); Absolute Basophil Count 0.04 10^3/uL (0.0-0.2); Absolute Eosinophil Count 0.14 10^3/uL (0.0-0.7); Absolute Lymphocyte Count 2.74 10^3/uL (1.2-3.4); Absolute Monocyte Count 0.77 10^3/uL (0.1-0.8); Basophils % 0.5; Eosinophils % 1.8; HCT 47.4 % (40.0-50.0); HGB 15.2 g/dL (13.5-17.5); Immature Grans % 0.3; MCH 25.5 pg (27.0-33.0); MCHC 32.1 % (32.0-36.0); MCV 80 fL (80-95); MPV 9.1 fL (8.0-11.0); Monocytes % 10.1; Neutrophils % 51.3; Platelet Count 335 10^3/uL (130-400); RBC 5.96 10^6/uL (4.36-5.78); RDW 19.4 % (11.8-14.1); RDW-SD 52.9 fL; WBC 7.61 10^3/uL (4.4-10.8)
[2023-05-07 10:54] LABS: PTT Activated 26.8 sec (23.6-32.8); Prothrombin Time 10.4 sec (9.1-11.1)
[2023-05-07] MEDS: Normal Saline 500 ML IV (11:08)
[2023-05-07 11:09] LABS: ALT 31 U/L (16-63); AST 19 U/L (15-37); Albumin 3.9 g/dL (3.4-5.0); Alkaline Phosphatase 51 U/L (46-116); Anion Gap 7.9 mmol/L (3-11); BUN 14 mg/dL (7-18); Bilirubin, Total 0.5 mg/dL (0.2-1.0); CO2 29.1 mmol/L (21.0-32.0); CREATININE 1.2 mg/dL (0.70-1.30); Calcium 9.2 mg/dL (8.5-10.1); Chloride 101 mmol/L (98-107); Estimated GFR 75.53 (mL/min/1.73m2); Glucose 102 mg/dL (74-106); Magnesium 2.1 mg/dL (1.8-2.4); NT-proBNP 323 pg/mL (<300); Potassium 4.3 mmol/L (3.5-5.1); Sodium 138 mmol/L (136-145); TSH (W/Ref FT4) 4.13 uIU/mL (0.36-3.74); Total Protein 7.8 g/dL (6.4-8.2)
[2023-05-07 11:11] LABS: Troponin I 297 ng/L (<or=60)
[2023-05-07 11:28] LABS: FREE T4 0.77 ng/dL (0.76-1.46)
[2023-05-07] MEDS: Aspirin 81 MG CHEW 243 MG CH (11:30)
[2023-05-07] MEDS: MAGNESIUM SULFATE 1 GM/100 ML BAG IVPB (11:30)
[2023-05-07] MEDS: Metoprolol CR 50 MG TABCR PO (13:32)
[2023-05-07 13:54] LABS: Troponin I 284 ng/L (<or=60)
[2023-05-07] MEDS: Metoprolol CR 25 MG TABCR PO (15:20)
== END 2023-05-07 16:23 | disposition home or self-care (01) ==
PROVIDERS: Emergency Provider Physician Assistant; PCP Family Medicine
DX: I48.91 Unspecified atrial fibrillation (principal); R42 Dizziness and giddiness; Z79.82 Long term (current) use of aspirin; Z79.899 Other long term (current) drug therapy; I10 Essential (primary) hypertension
CPT/HCPCS: 36415; 80053; 93005; 93270; 96365; 99285; 71046; 83735; 83880; 84439; 84443; 84484; 85025; 85610; 85730; 93010; 99284; J3475

== ENCOUNTER 2023-05-08 07:38 | Outpatient (CLI) | payer BC, SELFPAY | END 2023-05-08 07:39 | disposition home or self-care (01) | LOC: CARDOPNVT 07:38 | PROVIDERS: PCP Family Medicine | DX: I48.0 Paroxysmal atrial fibrillation (principal) | CPT/HCPCS: 93270 ==

== ENCOUNTER 2023-06-11 09:11 | Outpatient (CLI) | payer BC, SELFPAY ==
--- NOTE | 2023-06-14 08:40 | CER_ITS ---
Date of service: 06/14/23 Time of Service: 08:41 Cardiac Event Recorder Referring Provider:: MARLEY Indications:: Dizziness and giddiness Cardiac Event Note: This was a 30-day event monitor on this patient with a history of syncope and co llapse. 1. The initial rhythm on day 1 of monitoring was atrial fibrillation at a rate of 100 bpm, converted into normal sinus rhythm later on in the day. 2. 7 beat run of atrial tachycardia at 138 bpm, read by computer software as ventricular tachycardia. 3. Few episodes of atrial fibrillation with rapid ventricular response, sometimes aberrantly conducted (Melinda's phenomenon). 4. No pauses noted Impression: Paroxysmal atrial fibrillation
== END 2023-06-11 09:12 | disposition home or self-care (01) ==
LOC: CARDOPNVT 09:11
PROVIDERS: PCP Family Medicine; Visit Provider Internal Medicine Interventional Cardiology
DX: R42 Dizziness and giddiness (principal); I48.91 Unspecified atrial fibrillation
CPT/HCPCS: 00123

== ENCOUNTER 2023-08-19 15:33 | Outpatient (REF) | payer BC, SELFPAY | END 2023-08-19 15:34 | disposition home or self-care (01) | LOC: LBN 15:33 | PROVIDERS: PCP Family Medicine; Visit Provider Nurse Practitioner Family | DX: R30.0 Dysuria (principal) | CPT/HCPCS: 87077; 87086; 87186 ==

== ENCOUNTER 2023-08-21 19:36 | Emergency (ER) | payer BC, SELFPAY ==
[2023-08-21 19:42] VITALS: BP 125/91; PULSE 83; RESP 16; TEMP 36.5; O2SAT 95
--- NOTE | 2023-08-21 19:45 | W.ED.GENAD ---
Discharge Plan Disposition Patient Disposition: Home Discharge Details Clinical Impression: Acute orchitis Primary Care Provider: ESTER ROACH ED Provider: Mike Ivy [place] Meds and New Rx's Prescriptions: New levofloxacin 500 mg tablet 500 mg PO Q12H 10 Days Qty: 20 0RF Continued omeprazole 40 mg capsule,delayed release(DR/EC) 40 mg PO 2XD lisinopril 10 mg tablet 20 mg PO DAILY glycopyrrolate 1 mg tablet 1 mg PO BID-TID PRN valacyclovir [Valtrex] 1 gram tablet 1,000 mg PO PRN PRN testosterone cypionate 200 mg/mL Kit 100 mg IM Q2W aspirin [Adult Aspirin Regimen] 81 mg tablet,delayed release (DR/EC) 81 mg PO DAILY Qty: 30 0RF alfuzosin 10 mg tablet extended release 24 hr 10 mg PO DAILY Patient Comments: TAKE ONE TABLET BY MOUTH EVERY DAY ADMINISTER AFTER THE SAME MEAL EACH DAY Ozempic 1 mg/dose (4 mg/3 mL) pen injector 2 mg SUBCUT .qwk metoprolol tartrate 75 mg tablet 75 mg PO DAILY Qty: 14 0RF metoprolol succinate [Toprol XL] 50 mg tablet extended release 24 hr 75 mg PO Q12H Qty: 14 0RF cefpodoxime 100 mg tablet Patient Comments: TAKE ONE TABLET BY MOUTH EVERY 12 HOURS FOR 7 DAYS phenazopyridine 200 mg tablet Patient Comments: TAKE ONE TABLET BY MOUTH THREE TIMES A DAY FOR 2 DAYS bupropion HCl 100 mg tablet sustained-release 12 hr PO Patient Comments: TAKE ONE TABLET BY MOUTH EVERY DAY sertraline 25 mg tablet Patient Comments: TAKE ONE TABLET BY MOUTH EVERY DAY metoprolol succinate 25 mg tablet extended release 24 hr PO Patient Comments: TAKE THREE TABLETS BY MOUTH EVERY DAY metformin 500 mg tablet extended release 24 hr PO sertraline 50 mg tablet Patient Comments: TAKE ONE TABLET BY MOUTH EVERY DAY Mounjaro 10 mg/0.5 mL pen injector SUBCUT Patient Comments: INJECT 10MG UNDER THE SKIN ONCE A WEEK Discharge Instructions Additional Instructions: You were seen in the emergency department for your testicular swelling. You are found to have inflammation of your testicles which is called orchitis. You are receiving an antibiotic that you should take as directed. Please discontinue taking your previously prescribed antibiotic. Please follow-up with your primary care provider or your urologist as you will need an ultrasound of your testicles later this week. As we discussed, please return to the emergency department if you develop worsening swelling, and eat or drink as result of nausea or vomiting or if you have any other concerns. We have your primary care provider listed as Dr. Marrero. [facility] General Date/Time Provider Initiated Documentation: 08/21/23 19:45. [facility] Narrative: MDM This is an overall very well-appearing normothermic and not tachycardic male being treated for outpatient reportedly Klebsiella urinary tract infection with cefpodoxime with bedside ultrasound concerning for the possibility of orchitis for which patient will be switched to levofloxacin 500 mg twice daily. No pain out of proportion to suggest Christiane's gangrene. Patient does not sexually active so we will defer coverage for gonorrhea and chlamydia. No rash to groin to suggest zoster. I considered testicular torsion however did not feel that the patient required an emergent ultrasound based on his history which was not consistent with torsion. Specifically the patient did not have sudden onset scrotal pain nor nausea nor vomiting. He has not had episodic nor abrupt scrotal pain but more consistent testicular discomfort. He had an intact cremasteric reflex. On my limited bedside ultrasound the patient did have good blood flow to his bilateral testes. No trauma to suggest increased risk for testicular fracture. No signs of paraphimosis on exam. No signs of scrotal abscess on exam. Given recent urinary symptoms and nitrite positive urinalysis that was nonconcerning for testicular tumor. Patient has no overlying skin changes to suggest scrotal cellulitis. Patient has a soft nontender abdomen so as not concern for referred right lower quadrant pain from appendicitis. Similarly no diarrhea to suggest increased risk for diverticulitis. I sent a urinalysis showing nitrite positive but negative for hematuria. I advised the patient to follow-up with his primary care provider and his urologist at [facility] as a advised him that he needed a formal radiology ultrasound in the next 1 to 2 days. I advised him to return to the emergency department if he developed any worsening scrotal pain worsening scrotal swelling could not keep down his antibiotics as a result of nausea or vomiting or if he had any other concerns. Patient understood his return indications and we will proceed with empiric trial of expectant outpatient management. 9:25 PM I have asked advised health community engagement coordinator Dayanna to have the patient seen in the next several days by his primary care provider for a testicular ultrasound. Chronic conditions affecting the care of the patient: Recurrent urinary tract infections History obtained from an outside historian: N/A External record review: [facility] EMR Medications: Levofloxacin Social determinants of health affecting disposition: N/A Management discussed with: N/A Treatment/interventions considered: N/A Response to therapies provided: N/A HPI This is a 48-year-old male with history of recurrent STIs for which he follows with urology at [facility] arrived to the emergency department via private vehicle in the setting of right-sided testicular pain. Patient reports that approximately 1 week ago he began noticing symptoms of urinary tract infection. He waited until 4 days ago to receive an antibiotic following a urinalysis which was performed. Patient notes pain and possible swelling with concern for an odd mass in his right hemiscrotum. He reports that he is undergone cystoscopy in the past. He has not been sexually active in greater than 1 year. He has a prior history of surgeries to his scrotum. He denies history of diabetes. He reports that his recent urinary tract infection was going Klebsiella which was sensitive to his cefpodoxime with which he has been adherent. He has not been nauseous nor vomiting. No abdominal pain. No chest pain. He subjectively feels feverish. Exam General: Well-appearing in no acute distress speaking in complete sentences. Head: Normocephalic, atraumatic. Eye: Extraocular eye movements intact. No conjunctival injection. No scleral icterus. Ear, nose, mouth, throat: Grossly normal inspection. Normal voice, handling secretions normally. Neck: Trachea midline. Cardiovascular: Well-perfused distal extremities. Respiratory: Nonlabored respiration. Gastrointestinal: Nondistended abdomen. Soft nontender. : Uncircumcised penis. Mildly swollen testicles with mild tenderness. No testicular swelling. No pain out of proportion. No crepitance. No testicular cellulitis. No testicular fluctuance. Intact cremasteric reflex. Testicle is soft and not high riding. Musculoskeletal: No edema. Moving all 4 extremities spontaneously. Skin: Normal for age and race, grossly normal temperature and turgor. No acute rash. Neurologic: Alert and appropriate, no apparent acute deficits. Psychiatric: Mood and manner are appropriate. Grooming and personal hygiene are appropriate. Related Data Home Medications Medication Instructions Recorded Confirmed glycopyrrolate 1 mg tablet 1 mg PO BID-TID PRN 05/15/21 08/21/23 lisinopril 10 mg tablet 20 mg PO DAILY 05/15/21 08/21/23 valacyclovir 1 gram tablet 1,000 mg PO PRN PRN 05/15/21 08/21/23 (Valtrex) omeprazole 40 mg capsule,delayed 40 mg PO 2XD 09/08/21 08/21/23 release aspirin 81 mg tablet,delayed 81 mg PO DAILY #30 tabs 01/22/22 08/21/23 release (Adult Aspirin Regimen) testosterone cypionate 200 mg/mL 100 mg IM Q2W 01/22/22 08/21/23 intramuscular kit alfuzosin 10 mg tablet,extended 10 mg PO DAILY 05/07/23 08/21/23 release 24 hr metoprolol succinate 50 mg 75 mg (1.5 x 50 mg) PO Q12H #14 05/07/23 08/21/23 tablet,extended release 24 hr tabs (Toprol XL) metoprolol tartrate 75 mg tablet 75 mg PO DAILY #14 tabs 05/07/23 08/21/23 semaglutide 1 mg/dose (4 mg/3 mL) 2 mg subcut .qwk 05/07/23 08/21/23 subcutaneous pen injector (Brandin) bupropion HCl 100 mg tablet,12 hr mg PO 08/21/23 sustained-release cefpodoxime 100 mg tablet mg 08/21/23 levofloxacin 500 mg tablet 500 mg PO Q12H 10 days #20 tabs 08/21/23 metformin 500 mg tablet,extended mg PO 08/21/23 release 24 hr metoprolol succinate 25 mg mg PO 08/21/23 tablet,extended release 24 hr phenazopyridine 200 mg tablet mg 08/21/23 sertraline 25 mg tablet mg 08/21/23 sertraline 50 mg tablet mg 08/21/23 tirzepatide 10 mg/0.5 mL mg subcut 08/21/23 subcutaneous pen injector (Lashawn) Previous Rx's Medication Instructions Recorded aspirin 81 mg tablet,delayed 81 mg PO DAILY #30 tabs 01/22/22 release (Adult Aspirin Regimen) metoprolol succinate 50 mg 75 mg (1.5 x 50 mg) PO Q12H #14 05/07/23 tablet,extended release 24 hr tabs (Toprol XL) metoprolol tartrate 75 mg tablet 75 mg PO DAILY #14 tabs 05/07/23 levofloxacin 500 mg tablet 500 mg PO Q12H 10 days #20 tabs 08/21/23 Allergies Allergy/AdvReac Type Severity Reaction Status Date / Time sulfamethoxazole Allergy Mild Hives Verified 08/21/23 19:40 [From Bactrim] trimethoprim [From Bactrim] Allergy Mild Hives Verified 08/21/23 19:40 General Stated Complaint: Urinary CLYDE: 3 Course Vital Signs Vital signs: Vital Signs Temperature 36.5 C 08/21/23 19:42 Pulse 83 08/21/23 19:42 Respiratory Rate 16 08/21/23 19:42 Blood Pressure 125/91 H 08/21/23 19:42 Pulse Oximetry 95 08/21/23 19:42 Temperature 36.5 C 08/21/23 19:42 Temperature Source Temporal Artery Scan 08/21/23 19:42 Pulse 83 08/21/23 19:42 Respiratory Rate 16 08/21/23 19:42 Respiratory Effort Normal, Non-Labored 08/21/23 19:44 Blood Pressure 125/91 H 08/21/23 19:42 Blood Pressure Position Sitting 08/21/23 19:42 Pulse Oximetry 95 08/21/23 19:42 Oxygen Delivery Method Room Air 08/21/23 19:42 Oxygen Flow Rate 0 08/21/23 19:42 Pain Level 3 08/21/23 19:42 Medical Decision Making Quality:SDOH Health Related Social Needs: No Data to Display PFSH All Active Problems (Updated 08/21/23 @ 21:23 by Mike Ivy MD) Acute orchitis (Acute) Abdominal pain (Acute) Enteritis (Acute) Medical History Chronic GERD Hypertension Social History Smoking/Tobacco Use Status: Former Tobacco Use Smoking risk assessment performed?: Yes Alcohol Intake: current Alcohol Intake frequency: 0-2 drinks per day Alcohol type: beer Drug use: Never Substance use type: does not use Housing: house Do you feel safe at home: Yes Do you feel safe in your relationship?: Yes POCUS Exam (ED) Limited Pelvic Exam DATE OF EXAM: 08/21/23 TIME OF EXAM: 21:25 PROVIDER THAT PERFORMED THE STUDY: Mike Ivy IS THIS A REPEAT EXAM DURING THIS ENCOUNTER: No Type of Exam: Pelvic Trans Abdominal Exam (Testicular ultrasound) REASON FOR EXAM: Other (Testicular pain) indication: Testicular pain VISUALIZED STRUCTURES: Other structure: Wilson view PERTINENT FINDINGS/IMPRESSION: Other (Bilateral hydroceles right greater than left. Good flow bilaterally.) impression: Hydrocele bilaterally right greater than left Exam Complete
[2023-08-21 20:18] LABS: Bilirubin Negative (Negative); Blood Negative (Negative); Clarity Clear (Clear); Glucose Negative (Negative); Ketones Negative (Negative); Leukocyte Esterase Negative (Negative); Nitrite Positive (Negative); Urobilinogen 0.2 mg/dL (Up to 0.2); pH 5.5 (5-8)
[2023-08-21 20:29] LABS: Bacteria Rare HPF (Negative); Crystals Negative HPF (Negative); Epithelial Cells Negative HPF (Negative); Mucus Trace (Negative); RBC 0-2 HPF (0-2)
[2023-08-21 20:30] LABS: C & S Indicated? No
[2023-08-21] MEDS: levoFLOXacin 500 MG TAB PO (21:11)
[2023-08-21 21:39] VITALS: BP 135/72; PULSE 75; RESP 14; O2SAT 96
--- NOTE | 2023-08-21 21:45 | NUR.NOTE ---
Referral to Care Management to refer patient to PCP Brinda Teresa at [facility] for testicular discomfort and to determine if testicular ultrasound is needed in the next day or two.Nursing Note:
== END 2023-08-21 21:40 | disposition home or self-care (01) ==
PROVIDERS: Emergency Provider Emergency Medicine
DX: N45.2 Orchitis (principal); I10 Essential (primary) hypertension; Z79.82 Long term (current) use of aspirin
CPT/HCPCS: 76857; 76870; 99284; 81003; 81015

== ENCOUNTER 2024-03-03 20:06 | Emergency (ER) | payer BC, SELFPAY ==
[2024-03-03 20:27] VITALS: BP 139/85; PULSE 81; RESP 16; TEMP 37; O2SAT 96
[2024-03-03 20:47] VITALS: PULSE 78; RESP 16; TEMP 36.7; O2SAT 100
[2024-03-03 20:56] LABS: Bilirubin Small (Negative); Blood Moderate (Negative); Clarity Turbid (Clear); Glucose Negative (Negative); Ketones Trace mg/dL (Negative); Leukocyte Esterase Trace (Negative); Nitrite Negative (Negative); Specific Gravity 1.025 (1.005-1.025)
--- NOTE | 2024-03-03 20:57 | ED.GENADUL_ITS ---
Discharge Plan Disposition Patient Disposition: Home Condition: Stable Discharge Details Clinical Impression: Hematuria Primary Care Provider: ESTER ROACH ED Provider: Dustin Tipton Home Meds and New Rx's Prescriptions: Continued omeprazole 40 mg capsule,delayed release(DR/EC) 40 mg PO 2XD lisinopril 10 mg tablet 20 mg PO DAILY valacyclovir [Valtrex] 1 gram tablet 1,000 mg PO PRN PRN lisdexamfetamine 70 mg capsule Patient Comments: TAKE ONE CAPSULE BY MOUTH EVERY MORNING testosterone cypionate 200 mg/mL Kit 100 mg IM Q2W aspirin [Adult Aspirin Regimen] 81 mg tablet,delayed release (DR/EC) 81 mg PO DAILY Qty: 30 0RF alfuzosin 10 mg tablet extended release 24 hr 10 mg PO DAILY Patient Comments: TAKE ONE TABLET BY MOUTH EVERY DAY ADMINISTER AFTER THE SAME MEAL EACH DAY Ozempic 1 mg/dose (4 mg/3 mL) pen injector 2 mg SUBCUT .qwk metoprolol succinate 25 mg tablet extended release 24 hr 25 mg PO Patient Comments: Take one tablet as needed for a-fib metformin 500 mg tablet extended release 24 hr PO sertraline 50 mg tablet 50 mg PO DAILY Patient Comments: TAKE ONE TABLET BY MOUTH EVERY DAY Mounjaro 10 mg/0.5 mL pen injector 15 mg SUBCUT Patient Comments: INJECT 10MG UNDER THE SKIN ONCE A WEEK Discharge Instructions Instructions: Blood in Urine (Hematuria), Adult ED Additional Instructions: You were seen in the emergency department for your dysuria as well as urinary frequency, you have a history of UTIs, he started doxycycline this past weekend, you state that you had normal labs this morning and no history of kidney stones. You have no flank pain or discomfort and you are not in urinary retention. We discussed the possibility for CT scan, you opted against this study as you would likely need to follow-up with your urologist anyway, please call them in the morning for close follow-up, they may want to order an outpatient CT scan prior to performing a cystoscopy but other than that I do not see any need for paddy gent interventions, we provided you with a first dose of phenazopyridine for symptomatic relief, please return to an ER immediately for signs of urinary retention. Referrals: ESTER ROACH NP [Primary Care Provider] - HPI General Date/Time Provider Initiated Documentation: 09/24/24 20:33 . HPI Narrative: 48 year-old male presents to ED today by POV/ambulating with a chief complaint of hematuria, passing clots- history of UTIs, history of hematuria with onset on Saturday. Patient is followed by Urology at [facility]. Quality described as some urinary frequency and dysuria and passing of clots, no overt urinary retention, no radiation to active fever, flank pain, urinary retention, nausea or weakness. Severity is described as mild. Palliating factors include nothing specific attempted. Provoking factors include nothing specific. Events leading up to the incident/Associated Symptoms: Patient denies history of kidney stones. Patient states he had routine blood work today with normal labs. Patient not anticoagulated. Related Data Home Medications ?Medication ?Instructions ?Recorded ?Confirmed lisinopril 10 mg tablet 20 mg PO DAILY 05/15/21 03/03/24 valacyclovir 1 gram tablet 1,000 mg PO PRN PRN 05/15/21 03/03/24 (Valtrex) omeprazole 40 mg capsule,delayed 40 mg PO 2XD 09/08/21 03/03/24 release aspirin 81 mg tablet,delayed 81 mg PO DAILY #30 tabs 01/22/22 03/03/24 release (Adult Aspirin Regimen) testosterone cypionate 200 mg/mL 100 mg IM Q2W 01/22/22 03/03/24 intramuscular kit alfuzosin 10 mg tablet,extended 10 mg PO DAILY 05/07/23 03/03/24 release 24 hr semaglutide 1 mg/dose (4 mg/3 mL) 2 mg subcut .qwk 05/07/23 03/03/24 subcutaneous pen injector (Ozempic) metformin 500 mg tablet,extended mg PO 08/21/23 release 24 hr metoprolol succinate 25 mg 25 mg PO 08/21/23 tablet,extended release 24 hr sertraline 50 mg tablet 50 mg PO DAILY 08/21/23 03/03/24 tirzepatide 10 mg/0.5 mL 15 mg subcut 08/21/23 subcutaneous pen injector (Mounjaro) lisdexamfetamine 70 mg capsule mg 03/03/24 Previous Rx's ?Medication ?Instructions ?Recorded aspirin 81 mg tablet,delayed 81 mg PO DAILY #30 tabs 01/22/22 release (Adult Aspirin Regimen) Allergies Allergy/AdvReac Type Severity Reaction Status Date / Time sulfamethoxazole (From Allergy Mild Hives Verified 03/03/24 20:32 Bactrim) trimethoprim (From Bactrim) Allergy Mild Hives Verified 03/03/24 20:32 General Stated Complaint: Urinary CLYDE: 4 Review of Systems All systems reviewed & are unremarkable except as noted in HPI and below Exam Narrative Exam Narrative: GENERAL APPEARANCE: Well-nourished, non-toxic, awake and alert, atraumatic, no acute distress. SKIN: Warm, pink, dry, intact, without rashes/lesions/ulcerations. HEAD: Normocephalic, atraumatic, normal hair distribution for gender/age. EYES: Normal conjunctiva, no exudates on lids/lashes. ENT: Nares patent, no circumoral cyanosis, no facial swelling NECK: Supple, trachea midline, painless cervical ROM. LUNGS/CHEST: Non-labored respirations, normal A/P diameter, symmetrical expansion, no chest wall deformity HEART (CV/PV): No peripheral edema, no JVD. ABDOMEN: Soft, non-distended, no guarding, no CVA tenderness to percussion bilaterally, no anterior abdominal tenderness. MSK: Normal ROM, no swelling/deformity to bilateral UEs or LEs, moving all extremities without weakness, no cyanosis, spine midline without tenderness, normal curvature. NEURO: Mental Status AAOx4 - alert to person, place, time, events No facial droop, no forehead involvement. Motor: No focal weakness - strength 5/5 in bilateral UEs and LEs, proximal and distal, symmetric. Sensory: sensation intact to light touch globally. Gait normal: patient ambulated without ataxia into ED room. PSYCH: euthymic, cooperative, pleasant, appropriate speech Course Vital Signs Vital signs: Vital Signs Temperature 37.0 C 03/03/24 20:27 Pulse 81 03/03/24 20:27 Respiratory Rate 16 03/03/24 20:27 Blood Pressure 139/85 03/03/24 20:27 Pulse Oximetry 96 03/03/24 20:27 Temperature 36.7 C 03/03/24 20:47 Temperature Source Temporal Artery Scan 03/03/24 20:47 Pulse 78 03/03/24 20:47 Respiratory Rate 16 03/03/24 20:47 Respiratory Effort Normal, Non-Labored 03/03/24 20:45 Blood Pressure 139/85 03/03/24 20:27 Blood Pressure Position Sitting 03/03/24 20:27 Pulse Oximetry 100 03/03/24 20:47 Oxygen Delivery Method Room Air 03/03/24 20:47 Oxygen Flow Rate 0 03/03/24 20:27 Pain Level 0 03/03/24 20:47 Lab/Test Results Lab/Test Results: Laboratory Tests Range/Units 03/03/24 20:40 Urine Color (Yellow) Red Urine Clarity (Clear) Turbid Urine pH (5-8) 7.0 Ur Specific [place] (1.005-1.025) 1.025 Urine Protein (Neg-Trace) mg/dL >=300 H Urine Ketones (Negative) mg/dL Trace H Urine Blood (Negative) Moderate H Urine Nitrite (Negative) Negative Urine Bilirubin (Negative) Small H Urine Urobilinogen (Up to 0.2) mg/dL 1.0 H Ur Leukocyte Esterase (Negative) Trace H Urine Glucose (Negative) mg/dL Negative Medical Decision Making This dictation utilizes [id number] dictation software and may contain unedited grammatical errors. 48 year-old male presents to ED today by POV/ambulating with a chief complaint of hematuria, passing clots- history of UTIs, history of hematuria with onset on Saturday. Patient is followed by Urology at [facility]. Quality described as some urinary frequency and dysuria and passing of clots, no overt urinary retention, no radiation to active fever, flank pain, urinary retention, nausea or weakness. Severity is described as mild. Palliating factors include nothing specific attempted. Provoking factors include nothing specific. Events leading up to the incident/Associated Symptoms: Patient denies history of kidney stones. Patient states he had routine blood work today with normal labs. Patients' medical history: Hematuria, GERD, hypertension. Family and social history: Noncontributory. Pertinent exam findings / vital signs include no CVA tenderness to percussion bilaterally, no abdominal tenderness, nontoxic vitals, not obstructed. Differential / pathologies of concern include hematuria, bladder cancer, renal stone, UTI. Diagnostic studies of: -Urinalysis, shows proteinuria, hematuria, small leuk esterase, patient did start doxycycline days ago and likely unreliable for culture. Interventions of: -Discussed possibility for CT, patient declined, he needs to follow-up with urology for cystoscopy. ED Course/Assessment/Plan: 48-year-old male presents with hematuria since Saturday, had some mild signs of UTI, had doxycycline on hand and started immediately for UTI, followed by [facility] urology, I discussed with the patient the option for Romano if obstruction present to door CT to rule out kidney stone as a pathology, even a CT with contrast would not be an effective way to rule out bladder malignancy so the patient does need to follow-up with urology regardless, he chose to avoid irradiating studies this evening and will follow-up with urology as outpatient, he will return to the ED for any urinary obstruction. Findings not consistent with hemorrhage or hypotension, severe infection or sepsis, urinary obstruction. Disposition of hematuria. Patient verbalized understanding of the plan and return to ED criteria and engaged in shared decision making. Medical Records Medical records reviewed: Yes I reviewed the patient's medical records. Lab Data Lab results reviewed: Yes I reviewed the patient's lab results. Labs: Laboratory Tests Range/Units 03/03/24 20:40 Urine Color (Yellow) Red Urine Clarity (Clear) Turbid Urine pH (5-8) 7.0 Ur Specific [place] (1.005-1.025) 1.025 Urine Protein (Neg-Trace) mg/dL >=300 H Urine Ketones (Negative) mg/dL Trace H Urine Blood (Negative) Moderate H Urine Nitrite (Negative) Negative Urine Bilirubin (Negative) Small H Urine Urobilinogen (Up to 0.2) mg/dL 1.0 H Ur Leukocyte Esterase (Negative) Trace H Urine RBC (0-2) HPF >50 H Urine WBC Not Applicable Ur Epithelial Cells Not Applicable Urine Crystals Not Applicable Urine Bacteria Not Applicable Urine Mucus Not Applicable Ur Culture Indicated? No Urine Glucose (Negative) mg/dL Negative Quality:SDOH Health Related Social Needs: No Data to Display PFSH All Active Problems (Updated 03/03/24 @ 21:57 by RASHEED Bowles) Hematuria (Acute) Abdominal pain (Acute) Enteritis (Acute) Medical History Chronic GERD Hypertension Social History Smoking/Tobacco Use Status: Former Tobacco Use Smoking risk assessment performed?: Yes Alcohol Intake: current Alcohol Intake frequency: a few times a month Alcohol type: beer Drug use: Never Substance use type: does not use Housing: house Do you feel safe at home: Yes Do you feel safe in your relationship?: Yes
[2024-03-03 20:58] LABS: C & S Indicated? No; RBC >50 HPF (0-2)
[2024-03-03 22:12] VITALS: BP 117/72; PULSE 80; TEMP 37; O2SAT 98
== END 2024-03-03 22:34 | disposition home or self-care (01) ==
PROVIDERS: Emergency Provider Physician Assistant
DX: R31.9 Hematuria, unspecified (principal)
CPT/HCPCS: 51798; 99283; 81003; 81015